=== PATIENT | female | born 1960 | race Caucasian/White ===

== ENCOUNTER → 2016-10-31 | Outpatient (CLI) | payer BC ==
--- NOTE | 2016-10-31 19:15 | DX ---
DEXA Bone Mineral Densitometry followup Clinical Indications: Family history of osteoporosis. Previous history of osteopenia. The patient re ports history breast cancer 2004. She takes supplemental calcium and vitamin D. The patient exercises regularly. Comparison: September 17, 2014 Technique: Bone Mineral Densitometry (BMD) by Dual Energy X-Ray Absorptiometry (DEXA) was performed utilizing the [employer] scanner. The lumbar spine was evaluated in the AP projection. The bilat eral hips and left forearm were evaluated in the AP projection. Vertebral fracture assessment was als o performed. AP Lumbar Spine: The L1, L2, L3 and L4 vertebral bodies are evaluated. BMD: 1.074 gm/cm2 T-score: -1.0 SD Z-score: 0.0 SD Since the previous study, there has been no significant change. AP Left Hip: BMD: 0.903 gm/cm2 T-score: -0.8 SD Z-score: 0.0 SD Since the previous study, there has been no significant change. AP Right Hip: BMD: 0.899 gm/cm2 T-score: -0.9 SD Z-score: -0.1 SD Since the previous study, there has been no significant change. AP Left Forearm: BMD: 0.678 gm/cm2 T-score: -2.3 SD Z-score: -1.9 SD Since the previous study, there has been no significant change. Vertebral Fracture Assessment: No significant fracture deformity. The ten year risk for any major osteoporotic fracture is 6.1% and for a hip fracture is 0.5%. Conclusion: Considering the lowest measured site, the patient has low bone mineral density with the g reatest degree in the forearm. Any bone loss in this patient is probably related to aging or estroge n deficiency. Preferential bone loss in the forearm does raise the possibility of underlying hyperpa rathyroidism. There has been no significant change in bone mineral density since the prior study. Recommendations: To prevent osteoporosis and to promote bone density, consider the followin. Consider checking patient's PTH and serum calcium and phosphorus levels for possible hyperparathyr oidism. 2. Continued regular regimen of weightbearing and muscle-strengthening exercises. 3. Ensure that total daily calcium intake is at least 1500 mg (DIET more important than supplements). 4. Check serum hydroxy vitamin D3 (normal >30ng/ml). 5. Ensure daily intake of vitamin D at least 800 international units. 6. Consider follow up DEXA scan in 2 to 4 years to assess the rate of bone loss in this patient.
== END ==
LOC: FIMAGING 09:14
PROVIDERS: ATTEND Internal Medicine Hematology & Oncology
DX: M85.80 Other specified disorders of bone density and structure, unspecified site (principal); Z85.3 Personal history of malignant neoplasm of breast; Z82.62 Family history of osteoporosis

== ENCOUNTER → 2016-12-03 | Outpatient (CLI) | payer BC ==
--- NOTE | 2016-12-03 10:19 | DX ---
Left Wrist, 4 views including a navicular view History: Pain post fall x one week Comparison: None Findings: No subacute or healing fracture or malalignment is identified. Carpal bones are specifical ly normally aligned. There is a small incidental degenerative cyst in the mid navicular. Impression: Nothing acute or subacute identified.
== END ==
LOC: BMCIMAGING 09:56
PROVIDERS: ATTEND Emergency Medicine
DX: M25.532 Pain in left wrist (principal); W19.XXXA Unspecified fall, initial encounter

== ENCOUNTER → 2018-08-21 | Outpatient (CLI) | payer BC | LOC: BMCIMAGING 15:45 | PROVIDERS: ATTEND Internal Medicine | DX: M19.041 Primary osteoarthritis, right hand (principal); M19.042 Primary osteoarthritis, left hand ==